=== PATIENT | male | born 2000 | race African-American/Black ===

== ENCOUNTER 2023-07-28 10:18 | Emergency (ER) | payer SELFPAY ==
[2023-07-28 10:27] VITALS: BP 126/89; PULSE 77; TEMP 37; O2SAT 98; BMI 23.0
--- NOTE | 2023-07-28 11:26 | XR_ITS ---
[facility] [id number] Patient Name: LAURI LOCKWOOD MRN: [id number] date: 2000 Sex: M Assigned Patient Location: ER Current Patient Location: ER Accession/Order Number: [id number] Exam Date: 07/28/2023 11:35 Report Date: 07/28/2023 12:01 At the request of: HITESH HAJI Procedure: XR lumbar spine 2-3V EXAMINATION: XR lumbar spine 2-3V HISTORY: Atraumatic left-side pain; lower left back pain radiating into left hip COMPARISON: No relevant comparison available. FINDINGS: BONES: Slight left convex curvature lumbar spine. No fracture, spondylolisthesis, bone lesion. No appreciable facet arthropathy. DISC SPACES: No significant disc height narrowing, subluxation, or endplate abnormality. PARASPINOUS: Negative. No paraspinous abnormality is seen. OTHER: Negative. XR/XR lumbar spine 2-3V IMPRESSION: 1. No acute bone abnormality or appreciable degenerative changes. 2. Minimal levocurvature; positioning versus muscle spasm. Electronically authenticated by: PAOLO ARMIJO Date: 07/28/2023 12:01
--- NOTE | 2023-07-28 11:26 | ED.BACK1 ---
HPI HPI - Back Pain/Injury General Chief Complaint: Back Pain/Injury Stated Complaint: BACK PAIN Time Seen by Provider: 07/28/23 11:22 Source: patient Mode of arrival: walk-in History of Present Illness HPI Narrative: 22-year-old male presents for left lower back pain. He played flag football yesterday and the day before and it started hurting last evening. He does not recall a specific injury and that does not seem to radiate. No dysuria or hematuria. It is worse when he moves. Related Data Home Medications ?Medication ?Instructions ?Recorded ?Confirmed No Known Home Medications 07/28/23 07/28/23 Allergies Allergy/AdvReac Type Severity Reaction Status Date / Time No Known Drug Allergies Allergy Verified 07/28/23 10:27 Opioid HPI Opioid Management Most Recent Opioid Data: No Data to Display Review of Systems ROS Narrative A ten point review of systems is negative except as noted above. Exam Narrative Exam Narrative: Nurses note and vital signs reviewed and patient is not hypoxic. General: The patient appears well and in no apparent distress. Skin: Warm, dry, no pallor noted. There is no rash noted. Head: Normocephalic, atraumatic Eye: Normal conjunctiva, no drainage Ears, Nose, Mouth, and Throat: oral mucosa is moist. Nares patent. Cardiovascular: Regular Rate and Rhythm Respiratory: Patient is in no distress, no accessory muscle use, lungs are clear to auscultation, no wheezing, rales or rhonchi Back: No bruise or rash or focal area of tenderness to palpation. No swelling. GI: Soft and nontender Musculoskeletal: The patient has no evidence of calf tenderness, no pitting edema, symmetrical pulses noted bilaterally Neurological: A&O, normal speech Psychiatric: Cooperative Constitutional Vital Signs, click to edit/add: Last Vital Signs Temp 98.6 F 07/28/23 10:27 Pulse 74 07/28/23 12:30 Resp 18 07/28/23 12:30 BP 118/86 07/28/23 12:30 Pulse Ox 99 07/28/23 12:30 O2 Del Method Room Air 07/28/23 10:27 Course Vital Signs Vital signs: Vital Signs Temperature 98.6 F 07/28/23 10:27 Pulse Rate 77 07/28/23 10:27 Respiratory Rate 15 07/28/23 10:27 Blood Pressure 126/89 07/28/23 10:27 Pulse Oximetry 98 07/28/23 10:27 Oxygen Delivery Method Room Air 07/28/23 10:27 Temperature 98.6 F 07/28/23 10:27 Pulse Rate 74 07/28/23 12:30 Respiratory Rate 18 07/28/23 12:30 Blood Pressure 118/86 07/28/23 12:30 Pulse Oximetry 99 07/28/23 12:30 Oxygen Delivery Method Room Air 07/28/23 10:27 MDM - Back Pain/Injury MDM Narrative Medical decision making narrative: X-rays and CAT scan are negative. I have no clinical suspicion of pancreatitis. His amylase and lipase are normal. He has some elevation in CPK which is likely from heat exposure the past 2 days. He was given IV fluids and at this point I do not feel that he needs to be admitted to the hospital. He was instructed to drink plenty of fluids and stay out of the heat. Treatment diagnosis and follow-up were discussed with the patient Differential Diagnosis Differential diagnosis: Likely other (Lumbar strain, kidney stone, UTI) Lab Data Attestation: I reviewed the patient's lab results. Labs: Lab Results 07/28/23 07/28/23 Range/Units 11:33 13:17 WBC 8.0 (4.0-11.0) 10^3/uL RBC 4.90 (4.70-6.10) 10^6/uL Hgb 13.7 L (14.0-18.0) g/dL Hct 42.0 (42.0-54.0) % MCV 85.7 (80.0-94.0) fL MCH 28.0 (25.9-34.0) pg MCHC 32.6 (29.9-35.2) g/dL RDW 13.1 (11.0-15.0) % Plt Count 196 (150-450) 10^3/uL MPV 10.6 (9.5-13.5) fL Neut % (Auto) 59.2 (43.0-75.0) % Lymph % (Auto) 30.9 (20.5-60.0) % [place] % (Auto) 7.3 (1.7-12.0) % Eos % (Auto) 1.5 (0.9-7.0) % Baso % (Auto) 0.8 (0.2-2.0) % Neut # (Auto) 4.7 (1.4-6.5) 10^3/uL Lymph # (Auto) 2.5 (1.2-3.8) 10^3/uL [place] # (Auto) 0.6 (0.3-0.8) 10^3/uL Eos # (Auto) 0.1 (0.0-0.7) 10^3/uL Baso # (Auto) 0.1 (0.0-0.1) 10^3/uL Abs Immat Gran (auto) 0.02 (0.00-0.03) 10^3/uL Imm/Tot Granulo (auto) 0.3 (0.0-0.5) % Sodium 142 (136-145) mmol/L Potassium 3.8 (3.5-5.1) mmol/L Chloride 104 (98-107) mmol/L Carbon Dioxide 26.6 (21.0-32.0) mmol/L Anion Gap 15.2 BUN 16.0 (7.0-18.0) mg/dL Creatinine 1.16 (0.70-1.30) mg/dL Est GFR ( Amer) >60 (>=60) Est GFR (Non-Af Amer) >60 (>=60) BUN/Creatinine Ratio 13.8 Glucose 83 (74-106) mg/dL Calcium 9.2 (8.5-10.1) mg/dL Total Bilirubin 0.8 (0.2-1.0) mg/dL Direct Bilirubin 0.2 (0.0-0.2) mg/dL AST 54 H (15-37) U/L ALT 28 (16-63) U/L Alkaline Phosphatase 92 (46-116) U/L Total Creatine Kinase 1513 H* (39-308) U/L Total Protein 7.2 (6.4-8.2) g/dL Albumin 3.8 (3.4-5.0) g/dL Globulin 3.4 g/dL Albumin/Globulin Ratio 1.1 Amylase 68 (25-115) U/L Lipase 23.0 (16.0-77.0) U/L Urine Color Ware A (YELLOW) Urine Clarity Clear (CLEAR) Urine pH 6.0 (5.0-9.0) Ur Specific [place] >=1.030 A (1.005-1.025) Urine Protein Negative (NEG/TRACE) mg/dL Urine Glucose (UA) Negative (NEGATIVE) mg/dL Urine Ketones Trace A (NEGATIVE) mg/dL Urine Occult Blood Negative (NEGATIVE) Urine Nitrite Negative (NEGATIVE) Urine Bilirubin Negative (NEGATIVE) Urine Urobilinogen 0.2 (0.2-1.0) EU/dL Ur Leukocyte Esterase Trace A (NEGATIVE) Urine RBC 5-10 A (0-2) #/HPF Urine WBC 0-2 A (NONE SEEN) #/HPF Ur Squamous Epith Cells Rare (NONE/RARE) #/LPF Urine Crystals None seen (None Seen) #/HPF Urine Bacteria Trace A (NONE SEEN) #/HPF Urine Casts None seen (NONE SEEN) #/LPF Urine Mucus Small A (NONE SEEN) Imaging Data CT scan - abdomen: Radiologist's impression: ITS Impressions Lumbar Spine X-Ray 07/28/23 11:26 IMPRESSION: 1. No acute bone abnormality or appreciable degenerative changes. 2. Minimal levocurvature; positioning versus muscle spasm. Electronically authenticated by: PAOLO ARMIJO Date: 07/28/2023 12:01 Abdomen/Pelvis CT 07/28/23 12:19 IMPRESSION: 1. No urinary tract calculi or obstructive uropathy. 2. Slightly limited evaluation due to lack of intraperitoneal fat. 3. Suspect pancreatitis. Correlate with lab values. Electronically authenticated by: PAOLO ARMIJO Date: 07/28/2023 13:00 Discharge Plan Discharge Stand Alone Forms: Portal Instructions Chief Complaint: Back Pain/Injury Clinical Impression: Strain of lumbar region, Rhabdomyolysis Patient Disposition: Home, Self-Care Time of Disposition Decision: 15:32 Condition: Good Mode of Transportation: Private Vehicle Prescriptions / Home Meds: No Action No Known Home Medications Print Language: [place] Instructions: Rhabdomyolysis (ED), Low Back Strain (ED) Referrals: Physician,Non-Staff, MD [Primary Care Provider] - 1 week
[2023-07-28 11:52] LABS: Bilirubin Urine NEGATIVE (NEGATIVE); Blood Urine NEGATIVE (NEGATIVE); Clarity Urine CLEAR (CLEAR); Color Urine ORANGE (YELLOW); Glucose Urine UA NEGATIVE (NEGATIVE); Ketones Urine TRACE mg/dL (NEGATIVE); Leukocyte Esterase Urine TRACE (NEGATIVE); Nitrite Urine NEGATIVE (NEGATIVE); Protein Urine NEGATIVE (NEG/TRACE); Specific Gravity Urine >=1.030 (1.005-1.025); Urobilinogen Urine 0.2 EU/dL (0.2-1.0)
[2023-07-28 12:00] LABS: Bacteria Urine TRACE #/HPF (NONE SEEN); Mucus Urine SMALL (NONE SEEN); Squamous Epithelial Cell Urine RARE #/LPF (NONE/RARE); WBC Urine 0-2 #/HPF (NONE SEEN)
[2023-07-28 12:01] LABS: Cast Seen? NONE SEEN #/LPF (NONE SEEN); Crystals Seen? None Seen #/HPF (None Seen)
--- NOTE | 2023-07-28 12:19 | CT_ITS ---
[address] [address] Patient Name: LAURI LOCKWOOD MRN: [id number] date: 2000 Sex: M Assigned Patient Location: ER Current Patient Location: ER Accession/Order Number: [id number] Exam Date: 07/28/2023 12:30 Report Date: 07/28/2023 13:00 At the request of: HITESH HAJI Procedure: CT abdomen pelvis wo con EXAMINATION: CT abdomen pelvis wo con HISTORY: left flank pain, r/o stone, microscopic hematuria COMPARISON: CT abdomen pelvis 03/30/2020 TECHNIQUE: Axial, Coronal, and Sagittal images were obtained without and/or with IV contrast as indicated by examination type. Dose reduction techniques were achieved by using automated exposure control and/or adjustment of mA and/or kV according to patient size and/or use of iterative reconstruction technique. FINDINGS: LUNG BASES: No visible pulmonary or pleural disease. LIVER: No enlargement, atrophy, suspicious density, or significant focal lesion. BILIARY: No dilatation or calcification. PANCREAS: Poorly defined margins with suspected adjacent edema. No abnormal duct dilation or stones. SPLEEN: No enlargement or focal lesion. ADRENALS: No mass or enlargement. KIDNEYS: No mass, obstruction, or calcification. BOWEL/MESENTERY: Prior bowel resection and anastomosis within the anterior lower pelvis. No visible mass, obstruction, or bowel wall thickening. AORTA/VASCULAR: No aneurysm or dissection. RETROPERITONEUM: No mass or adenopathy. LYMPH NODES: No adenopathy. URINARY BLADDER: No visible focal wall thickening, lesion, or calculus. PELVIC ORGANS: No visible mass. Pelvic organs appropriate for patient age. ABDOMINAL WALL: No mass or hernia. BONES: No bony lesion or fracture. OTHER: Negative. CT/CT abdomen pelvis wo con IMPRESSION: 1. No urinary tract calculi or obstructive uropathy. 2. Slightly limited evaluation due to lack of intraperitoneal fat. 3. Suspect pancreatitis. Correlate with lab values. Electronically authenticated by: PAOLO ARMIJO Date: 07/28/2023 13:00
[2023-07-28 12:30] VITALS: BP 118/86; PULSE 74; O2SAT 99
[2023-07-28 14:14] LABS: Basophils Absolute Auto 0.1 10^3/uL (0.0-0.1); Basophils Percent Auto 0.8 % (0.2-2.0); Eosinophils Absolute Auto 0.1 10^3/uL (0.0-0.7); Eosinophils Percent Auto 1.5 % (0.9-7.0); Hemoglobin 13.7 g/dL (14.0-18.0); Immature Granulocytes Abs Auto 0.02 10^3/uL (0.00-0.03); Immature Granulocytes Pct Auto 0.3 % (0.0-0.5); Lymphocytes Absolute Auto 2.5 10^3/uL (1.2-3.8); Lymphocytes Percent Auto 30.9 % (20.5-60.0); Mean Corpuscular HGB Conc 32.6 g/dL (29.9-35.2); Mean Corpuscular Volume 85.7 fL (80.0-94.0); Mean Platelet Volume 10.6 fL (9.5-13.5); Monocytes Absolute Auto 0.6 10^3/uL (0.3-0.8); Monocytes Percent Auto 7.3 % (1.7-12.0); Neutrophils Absolute Auto 4.7 10^3/uL (1.4-6.5); Neutrophils Percent Auto 59.2 % (43.0-75.0); Platelet Count 196 10^3/uL (150-450); Red Cell Distribution Width 13.1 % (11.0-15.0)
[2023-07-28 14:22] LABS: Alanine Aminotransferase 28 U/L (16-63); Albumin Globulin Ratio 1.1; Albumin Level 3.8 g/dL (3.4-5.0); Alkaline Phosphatase 92 U/L (46-116); Amylase 68 U/L (25-115); Anion Gap 15.2; Aspartate Amino Transferase 54 U/L (15-37); BUN Creatinine Ratio 13.8; Bilirubin Direct 0.2 mg/dL (0.0-0.2); Bilirubin Total 0.8 mg/dL (0.2-1.0); Calcium 9.2 mg/dL (8.5-10.1); Carbon Dioxide 26.6 mmol/L (21.0-32.0); Chloride 104 mmol/L (98-107); Estimated GFR (African America >60 (>=60); Estimated GFR (Non-African Ame >60 (>=60); Globulin 3.4 g/dL; Glucose 83 mg/dL (74-106); Potassium 3.8 mmol/L (3.5-5.1); Sodium 142 mmol/L (136-145); Total Protein 7.2 g/dL (6.4-8.2)
[2023-07-28 14:27] LABS: Creatine Kinase 1513 U/L (39-308)
[2023-07-28] MEDS: 0.9 % SODIUM CHLORIDE 1,000 ML 1000 ML IV (15:01)
[2023-07-28 15:38] VITALS: BP 118/88; PULSE 62; O2SAT 99
== END 2023-07-28 15:44 | disposition home or self-care (01) ==
PROVIDERS: Emergency Provider Emergency Medicine
DX: S39.012A Strain of muscle, fascia and tendon of lower back, initial encounter (principal); M62.82 Rhabdomyolysis; X58.XXXA Exposure to other specified factors, initial encounter; Y93.62 Activity, american flag or touch football
CPT/HCPCS: 36415; 72100; 74176; 80048; 80076; 81001; 82150; 82550; 83690; 85025; 96360; 99284